=== PATIENT | female | born 1985 | race Caucasian/White ===

== ENCOUNTER 2020-05-30 13:13 | Emergency (ER) | payer OTHER, SELFPAY ==
--- NOTE | ~2020-05-30 | US_ITS ---
EXAMINATION: ULTRASOUND OB LESS THAN 14 WEEKS CLINICAL INFORMATION: Left lower quadrant abdominal pain. COMPARISON: None TECHNIQUE: Transabdominal imaging of the pelvis is performed. FINDINGS: There is a single live intrauterine fetus with a crown-rump length of 2.3 cm corresponding 9 weeks 9 days and NIKOLAI of 01/01/2021. By LMP the clinical gestational age is 01/02/2021. There is visualization of yolk sac, pole and cardiac activity. The artery does 1 69 bpm. The right ovary measures 2.4 x 1.6 x 2.1 cm. The left ovary measures 4.2 x 1.8 x 2.4 cm is anechoic corpus luteal cyst measuring 1.5 x 1.5 x 1.5 cm. There is no free fluid in cul-de-sac. US/US OB <= 14 weeks fetus IMPRESSION: Single live intrauterine fetus with ultrasound gestational age of 9 weeks 1 day and NIKOLAI of 01/01/2021. There is a small left ovarian corpus luteal cyst measuring 1.5 x 1.5 x 1.5 cm
[2020-05-30 13:22] VITALS: BP 115/82; PULSE 79; RESP 16; TEMP 36.8; O2SAT 100; BMI 18.9
--- NOTE | 2020-05-30 13:39 | ED_ITS ---
HPI - General Chief complaint: Nausea/Vomiting/Diarrhea Stated complaint: vomiting Time Seen by Provider: 05/30/20 13:26 Source: patient Mode of arrival: ambulatory Limitations: no limitations History of Present Illness HPI Narrative: 34yoF who is currently 9 week estimated by last menstr ual period who has had 8 total pregnancies inclduing this in the past, 6 living children and 1 miscarriage ([id number]) presenting who is being followed by [facility] presenting to the ED with complaints of nausea/vomiting with associated left lower quadrant abdominal pain. Reports she was seen at with a woman yesterday and given Reglan and Doxylamine although she reports these medications made her symptoms worse and cause her to be dizzy therefore she stopped taking them after 1 dose. Denies any fevers, chills, headaches, neck pain/stiffness, chest pain, shortness of breath, dyspnea on exertion, orthopnea, palpitations, vaginal discharge, vaginal bleeding, dysuria, constipation or diarrhea. Denies recent travel or sick contacts. MD Complaint: abdominal pain and other (With associated nausea/vomiting) Onset (ago): day(s) (For the past few days worse today) Pain Consistency: constant Location: abdomen (Left lower quadrant) Severity: moderate Quality: Cramping Relieving factors: none Exacerbating factors: eating Associated symptoms: nausea and vomiting Vaginal discharge: none Vaginal bleeding: none Patient : Yes Number of Weeks : 9 OB History - Current : no complications OB History - Previous Pregnancies: no complications care: followed by OB Related Data : 8 Para: 6 Total number of abortions (spontaneous and elective): 1 Previous Rx's Medication Instructions Recorded promethazine 25 mg PO Q6H PRN #14 tab 05/30/20 promethazine 25 mg UT Q6H PRN #12 ea 05/30/20 Allergies Allergy/AdvReac Type Severity Reaction Status Date / Time No Known Allergies Allergy Verified 05/30/20 13:50 [No Known Allergies*] Review of Systems Review of Systems: Constitutional : No Weight loss, No Fever, No Chills, No Night Sweats, No Fatigue, NoMalaise ENT/Mouth: No ear pain, No sore throat, No Difficulty swallowing Cardiovascular : No Chest Pain, No SOB, No Dyspnea on Exertion, No Orthopnea, NoEdema, No Palpitations Respiratory : No Cough, No Sputum, No Wheezing, No Dyspnea Gastrointestinal : + abdominal pain, + Nausea, + Vomiting, No Diarrhea, No Hematochezia, No Melena Genitourinary : No irregular bleeding, No Dysuria, No Urinary Frequency, No Hematuria,No Urinary Incontinence, No Urgency, No Flank Pain Musculoskeletal : No joint pain, No Myalgias, No Joint Swelling Skin : No Skin Lesions, No rash Neuro : No Weakness, No Numbness, No Paresthesias, No Loss of Consciousness, NoDizziness, No Headache Psych : No Social Issues, Heme/Lymph: No Bruising, No Bleeding,No Lymphadenopathy Endocrine : No Polyuria, No Polydipsia, No Temperature Intolerance Yes all other systems are reviewed and are negative [facility] Past Medical History Attestation statement: The following information was validated with the patient. Medical History Asthma Sickle cell trait : 8 Para: 6 Total number of abortions (spontaneous and elective): 1 Social History Social History Advance Directives: Yes Advance Directives Information Provided: No Advance Directives on File: No Physical Exam Vital Signs: Vital Signs: Last Vital Signs Temp 98.6 F 05/30/20 16:06 Pulse 86 05/30/20 16:06 Resp 16 05/30/20 16:06 BP 124/93 H 05/30/20 16:06 Pulse Ox 100 05/30/20 13:22 Body Mass Index 18.9 vital signs have been reviewed as normal and appeared to be correct. Blood pressure normal. Heart rate normal. Respiration rate normal. Temperature normal. Oxygen saturation normal. Appearance: Alert. Oriented X3. No acute distress. Head: Normal external exam. Normocephalic. Eyes: PERRLA. EOMI. Conjunctiva and sclera normal. Eyelids normal. ENT: Pharynx normal. Uvula midline. Moist mucous membranes. No trismus noted. No drooling noted. No muffled voice noted. Neck: Normal inspection. Neck supple. FROM. No adenopathy. No meningeal signs. CVS: Normal heart rate and rhythm. Heart sound normal. No murmurs noted. Pulses normal throughout. Respiratory: No respiratory distress. Painless inspiration. Breath sounds normal. No wheezes/rales/rhonchi noted. Chest nontender. No accessory muscle usage noted or decreased air movement noted. Abdomen: Soft and mild tenderness to palpation to left lower quadrant/suprapubic area with guarding. Nondistended. No rigidity. Bowel sounds normal in all 4 quadrants. No distention noted. No organomegaly noted. No visible injury noted. No rebound tenderness. Negative Rovsing sign. Negative obturator's sign. Negative psoas sign. Negative Zelaya sign. Back: No CVA tenderness. Full range of motion noted. Skin: Skin warm and dry. Normal skin color. Normal skin turgor. No rashes/lesions/lacerations noted. Extremities: No lower extremity edema. No calf tenderness noted. Extremities exhibit normal range of motion. Extremities nontender. Neuro: Oriented X 3. No motor deficit. No sensory deficit. Reflexes normal. Course Course Course Narrative: 4:33pm - 34yoF who is currently 9 week estimated by last menstrual period who has had 8 total pregnancies inclduing this in the past, [facility] and [facility] ([id number]) presenting who is being followed by [facility] at [facility] presenting to the ED with complaints of nausea/vomiting with associated left lower quadrant abdominal pain. - labs obtained [place] [address] otherwise all other labs are within normal limits. Serum quant appropriately elevated. UA revealed 80 ketones although patient received 2.5 L at this time of fluids. No evidence of UTI. Patient is now tolerating p.o. fluids. Is requesting to go home despite her 3rd L fluid still running. ultrasound revealed single live intrauterine fetus with ultrasound gestational age of 9 weeks 1 day and e stimated delivery date of 01/01/2021. There is a small left ovarian corpus luteal cyst otherwise no other acute processes noted. - therefore will DC home with Phenergan as patient reports that this medication actually worked better we will give her p.o. and suppository and instructed patient to not take at the same time and to return if any new or worsening symptoms. Patient understands agrees with this plan. Along with instructions to follow-up with OBGYN. Procedures Perimortem Number of Weeks : 9 MDM - OB/Uterine Contractions Medical Records Attestation: I reviewed the patient's medical records. Lab Data Attestation: I reviewed the patient's lab results. Result diagrams: 05/30/20 13:48 05/30/20 13:48 Labs: Lab Results 05/30/20 05/30/20 05/30/20 Range/Units 13:48 13:48 13:48 WBC 11.0 H (4.8-10.8) X10*3/uL RBC 4.30 (4.20-5.50) X10*6/uL Hgb 12.9 (12.0-16.0) g/dl Hct 36.4 L (37-47) % MCV 84.7 (80-98) fL MCH 30.0 (27.0-33.0) pg MCHC 35.4 H (31.0-35.0) g/dl RDW 13.4 (11.0-16.0) % Plt Count 257 (160-400) X10*3/uL MPV 9.1 L (9.4-12.3) fL Immature Gran % (Auto) 0.4 (0.0-0.4) % Neut % (Auto) 79.6 H (45-73) % Lymph % (Auto) 14.2 L (20-40) % [place] % (Auto) 5.2 (2-11) % Eos % (Auto) 0.4 (0-4) % Baso % (Auto) 0.2 (0-2) % Lymph # (Auto) 1.6 (1.2-4.9) X10*3/uL [place] # (Auto) 0.6 (0.1-1.2) X10*3/uL Eos # (Auto) 0.0 (0.0-0.4) X10*3/uL Baso # (Auto) 0.0 (0.0-0.2) X10*3/uL Abs Immat Gran (auto) 0.04 H (0.00-0.03) X10*3/uL Absolute Neuts (auto) 8.8 H (2.0-8.3) X10*3/uL Absolute Nucleated RBC 0.000 (0.0-0.012) X10*3/uL Nucleated RBC % (auto) 0.0 (0.0-0.2) /100WBC Hold Blue Top SEE NOTE Sodium 137 (135-145) mmol/L Potassium 3.4 (3.3-5.1) mmol/L Chloride 100 (96-108) mmol/L Carbon Dioxide 24 (22-29) mmol/L Anion Gap 16 (12-20) BUN 9 (9-16) mg/dL Creatinine 0.65 (0.5-1.4) mg/dL Estim Creat Clear Calc 87.6 Estimated GFR > 60 Random Glucose 84 (60-115) mg/dL Calcium 9.8 (8.4-10.2) mg/dL Magnesium 2.0 (1.6-2.6) mg/dL Total Bilirubin 0.5 (0.0-1.0) mg/dL Direct Bilirubin 0.2 (0.0-0.5) mg/dL AST 19 (5-31) U/L ALT 24 (0-31) U/L Alkaline Phosphatase 55 (39-117) U/L Total Protein 8.1 H (6.5-8.0) g/dL Albumin 4.8 (3.5-5.0) g/dL Beta HCG, Quant mIU/mL Urine Color Urine Appearance Urine pH (5.0-8.0) Ur Specific [place] (1.005-1.025) Urine Protein (NEG-TRACE) MG/DL Urine Glucose (UA) (NEG) MG/DL Urine Ketones (NEG) MG/DL Urine Blood (NEG) Urine Nitrite (NEG) Ur Leukocyte Esterase (NEG) 05/30/20 05/30/20 Range/Units 13:48 16:09 WBC (4.8-10.8) X10*3/uL RBC (4.20-5.50) X10*6/uL Hgb (12.0-16.0) g/dl Hct (37-47) % MCV (80-98) fL MCH (27.0-33.0) pg MCHC (31.0-35.0) g/dl RDW (11.0-16.0) % Plt Count (160-400) X10*3/uL MPV (9.4-12.3) fL Immature Gran % (Auto) (0.0-0.4) % Neut % (Auto) (45-73) % Lymph % (Auto) (20-40) % [place] % (Auto) (2-11) % Eos % (Auto) (0-4) % Baso % (Auto) (0-2) % Lymph # (Auto) (1.2-4.9) X10*3/uL [place] # (Auto) (0.1-1.2) X10*3/uL Eos # (Auto) (0.0-0.4) X10*3/uL Baso # (Auto) (0.0-0.2) X10*3/uL Abs Immat Gran (auto) (0.00-0.03) X10*3/uL Absolute Neuts (auto) (2.0-8.3) X10*3/uL Absolute Nucleated RBC (0.0-0.012) X10*3/uL Nucleated RBC % (auto) (0.0-0.2) /100WBC Hold Blue Top Sodium (135-145) mmol/L Potassium (3.3-5.1) mmol/L Chloride (96-108) mmol/L Carbon Dioxide (22-29) mmol/L Anion Gap (12-20) BUN (9-16) mg/dL Creatinine (0.5-1.4) mg/dL Estim Creat Clear Calc Estimated GFR Random Glucose (60-115) mg/dL Calcium (8.4-10.2) mg/dL Magnesium (1.6-2.6) mg/dL Total Bilirubin (0.0-1.0) mg/dL Direct Bilirubin (0.0-0.5) mg/dL AST (5-31) U/L ALT (0-31) U/L Alkaline Phosphatase (39-117) U/L Total Protein (6.5-8.0) g/dL Albumin (3.5-5.0) g/dL Beta HCG, Quant 914583 mIU/mL Urine Color YELLOW Urine Appearance CLEAR Urine pH 5.5 (5.0-8.0) Ur Specific [place] 1.025 (1.005-1.025) Urine Protein NEG (NEG-TRACE) MG/DL Urine Glucose (UA) NEG (NEG) MG/DL Urine Ketones >=80 (NEG) MG/DL Urine Blood 2+ H (NEG) Urine Nitrite NEG (NEG) Ur Leukocyte Esterase NEG (NEG) Imaging Data Fetus ultrasound: Attestation: I personally reviewed and interpreted this imaging study as follows: Radiologist's impression: FINDINGS: There is a single live intrauterine fetus with a crown-rump length of 2.3 cm corresponding 9 weeks 9 days and NIKOLAI of 01/01/2021. By LMP the clinical gestational age is 01/02/2021. There is visualization of yolk sac, pole and cardiac activity. The artery does 1 69 bpm. The right ovary measures 2.4 x 1.6 x 2.1 cm. The left ovary measures 4.2 x 1.8 x 2.4 cm is anechoic corpus luteal cyst measuring 1.5 x 1.5 x 1.5 cm. There is no free fluid in cul-de-sac. US/US OB <= 14 weeks fetus IMPRESSION: Single live intrauterine fetus with ultrasound gestational age of 9 weeks 1 day and NIKOLAI of 01/01/2021. There is a small left ovarian corpus luteal cyst measuring 1.5 x 1.5 x 1.5 cm Discharge Plan Discharge Clinical Impression: Hyperemesis gravidarum, mild, before 23rd week, Nausea and vomiting during , , Cyst of left ovary Patient Disposition: Home, Self-Care Instructions: Nausea and Vomiting in (ED), Ovarian Cyst (ED) Additional Instructions: I prescribed you Phenergan by mouth and a rectal suppository. Please alternate between the Phenergan prescriptions do not take them both at the same time either take the 1 by mouth or rectally. Return if any new or worsening symptoms. Follow-up with your OBGYN. Prescriptions: New promethazine 25 mg tablet 25 mg PO Q6H PRN (Reason: nausea and vomiting) Qty: 14 RF: 0 promethazine 25 mg suppository 25 mg UT Q6H PRN (Reason: nausea and vomiting) Qty: 12 RF: 0 Referrals: Physician,None [Primary Care Provider] - 2 days (Your PCP and your OBGYN) Print Language: Divehi
[2020-05-30] MEDS: 0.9 % Sodium Chloride 1,000 ML 999 ML IVCONT ×3 (13:50→17:05)
[2020-05-30 13:58] LABS: MANUAL DIFF FLAG NO
[2020-05-30 13:59] LABS: Basophils Percent Auto 0.2 % (0-2); Eosinophils Percent Auto 0.4 % (0-4); Hematocrit 36.4 % (37-47); Hemoglobin 12.9 g/dl (12.0-16.0); Imm Gran Abs Auto 0.04 X10*3/uL (0.00-0.03); Imm Gran Pct Auto 0.4 % (0.0-0.4); Lymphocytes Absolute Auto 1.6 X10*3/uL (1.2-4.9); Lymphocytes Percent Auto 14.2 % (20-40); Mean Corpuscular HGB Conc 35.4 g/dl (31.0-35.0); Mean Corpuscular Volume 84.7 fL (80-98); Mean Platelet Volume 9.1 fL (9.4-12.3); Monocytes Absolute Auto 0.6 X10*3/uL (0.1-1.2); Monocytes Percent Auto 5.2 % (2-11); Neutrophils Absolute Auto 8.8 X10*3/uL (2.0-8.3); Neutrophils Percent Auto 79.6 % (45-73); Platelet Count 257 X10*3/uL (160-400); Red Cell Distribution Width 13.4 % (11.0-16.0)
[2020-05-30 14:31] LABS: Alanine Aminotransferase 24 U/L (0-31); Albumin Level 4.8 g/dL (3.5-5.0); Alkaline Phosphatase 55 U/L (39-117); Anion Gap 16 (12-20); Aspartate Amino Transferase 19 U/L (5-31); Bilirubin Direct 0.2 mg/dL (0.0-0.5); Bilirubin Total 0.5 mg/dL (0.0-1.0); Blood Urea Nitrogen 9 mg/dL (9-16); Calcium 9.8 mg/dL (8.4-10.2); Carbon Dioxide 24 mmol/L (22-29); Chloride 100 mmol/L (96-108); Creatinine Clr Calc Pharmacy 87.6; Estimated Glomerular Filt Rate > 60; Glucose Random 84 mg/dL (60-115); Potassium 3.4 mmol/L (3.3-5.1); Sodium 137 mmol/L (135-145); Total Protein 8.1 g/dL (6.5-8.0)
[2020-05-30 16:06] VITALS: BP 124/93; PULSE 86; RESP 16; TEMP 37
[2020-05-30 16:24] LABS: Glucose Urine UA NEG (NEG); Leukocyte Esterase Urine NEG (NEG); Nitrite Urine NEG (NEG); PH 5.5 (5.0-8.0); Specific Gravity - Urine 1.025 (1.005-1.025); Urine Blood 2+ (NEG); Urine Ketones >=80 MG/DL (NEG); Urine Protein NEG (NEG-TRACE)
[2020-05-30 16:26] LABS: Appearance Urine CLEAR; Color Urine YELLOW
[2020-05-30 16:35] LABS: RBC Urine 0-2 /HPF (0); Squamous Epithelial Cell Urine TRACE /LPF; WBC Urine 0-2 /HPF (0-4)
[2020-05-30 16:36] LABS: Hyaline Casts Urine 0-2 /LPF; Mucus Urine TRACE /LPF
== END 2020-05-30 17:55 | disposition home or self-care (01) ==
PROVIDERS: Physician Assistant Medical; Emergency Provider Emergency Medicine Emergency Medical Services
DX: O21.0 Mild hyperemesis gravidarum (principal); O34.81 Maternal care for other abnormalities of pelvic organs, first trimester; N83.12 Corpus luteum cyst of left ovary; O26.891 Other specified pregnancy related conditions, first trimester; R10.32 Left lower quadrant pain; Z3A.09 9 weeks gestation of pregnancy
CPT/HCPCS: 36415; 76801; 80048; 80076; 81001; 83735; 84702; 85025; 96361; 96374; 99284

== ENCOUNTER 2023-05-22 14:10 | Emergency (ER) | payer OTHER, SELFPAY ==
[2023-05-22 14:25] VITALS: BP 112/76; PULSE 90; RESP 18; TEMP 36.5; O2SAT 95; BMI 23.1
--- NOTE | 2023-05-22 14:38 | ED_ITS ---
HPI - General Adult General Chief complaint: General Medical Stated complaint: Lesions on head & abdomen Time Seen by Provider: 05/22/23 14:33 Source: patient Mode of arrival: ambulatory Limitations: no limitations History of Present Illness HPI narrative: 37 yold female with healthy femal presents to the ED for lesiosn on abdomen and rash on right forehead. Patient states rash and lesions or chronic. Patient denies any fever or chills. patient states no trauma. Related Data Previous Rx's Medication Instructions Recorded promethazine 25 mg rectal 25 mg MD Q6H PRN nausea and 05/30/20 suppository vomiting #12 ea promethazine 25 mg tablet 25 mg PO Q6H PRN nausea and 05/30/20 vomiting #14 tabs mupirocin 2 % topical ointment 1 appl topical TID 7 days #22 grams 05/22/23 Allergies Allergy/AdvReac Type Severity Reaction Status Date / Time No Known Allergies Allergy Verified 05/30/20 13:50 [No Known Allergies*] [facility] Past Medical History Medical History Asthma Sickle cell trait Social History Social History Advance Directives: No Advance Directives Information Provided: Yes Physical Exam ED Vital Signs: Vital Signs - 24 hr 05/22/23 14:25 Temperature 97.7 F Pulse Rate 90 Respiratory Rate 18 Blood Pressure 112/76 Pulse Oximetry 95 Oxygen Delivery Method Room Air BMI result Body Mass Index 23.1 Const General: cooperative, healthy appearing, comfortable, no acute distress, well developed, alert and awake Orientation/consciousness: oriented to person, oriented to place, oriented to time and patient oriented x3 HENMT Head: Yes normal to inspection, Yes No palpable skull fracture present, Yes normocephalic and Yes atraumatic Head images: 2 1. folliculitis 2. folluctilitis Eyes General: appearance normal, both eyes and all related structures Neck Neck: Yes normal visual inspection, Yes full ROM, Yes no lymphadenopathy, Yes no meningeal signs, Yes trachea midline, Yes supple, No anterior neck swelling and No tender Chest Chest palpation & inspection: normal inspection of the chest and normal palpation of entire chest wall Resp Effort & Inspection: normal respiratory effort and able to speak in complete sentences Auscultation: clear to auscultation bilaterally Cardio Jugular venous distension: no JVD Heart sounds: S1 normal heart sound present and S2 normal heart sound present GI Inspection: Yes normal to inspection Palpation (GI): Soft to palpation, not firm, nontender, no guarding and not rigid Abdomen image: 2 1. hard scaly lesions that is non-tender. negative for pus discharge, foul odor, erythema, or tendnerss. General: Yes no CVA tenderness Back/Spine/Pelvis Back: no CVA tenderness and No back tenderness Skin Other: forehead and abdominal lesions Neuro General: oriented to person, oriented to place, oriented to time, patient oriented x3, gait normal, tone normal, moves all extremities, Normal light touch and pain sensation, no meningeal signs and no focal motor deficits Extrem General: Yes normal to inspection, Yes full ROM and Yes capillary refill normal Psych Appearance: grossly normal, well kempt and not disheveled Course Course Course Narrative: RME: 37 yold female presents to the ED for stomach skin lesion that is hard and scaly for months and right scalp lesions that are tender and itchy. Medical Decision Making Medical Decision Making MDM Narrative: 37 yold male with scaly lesions on abdomen and right right forehead. Patient denies any recent trauma. Forehead lesions indicate folliculitis. abdominal lesionon concerning any may need biopsy to rule out skin CA. patient informed to follow up with dermatlogists. not suspecting abscess, shingles, cellulitits, petechiae, bartolo- ale syndrome, or animal bite. Patient given different dermatologists to call for re-evaluation of forehead folliculitis stap or acne and abdominal SKin lesions concerning for cancer. patient stressed importance of skin biopsy. Differential Diagnosis Differential Diagnoses: The differential diagnosis associated with the presentation includes (skin CA lesions, folluclitis, acnes) Prescription Management I considered prescription management with: Antibiotic Discharge Plan Discharge Clinical Impression: Skin lesion, Folliculitis Patient Disposition: Home, Self-Care Instructions: Folliculitis (ED), Skin Biopsy (DC) Additional Instructions: Recommend calling animal caretaker tomorrow for re-evaluation for biopsy of lesion to make sure not skin cancer. Return to the ED immediately for any redness, pus discharge, foul odor, increased size of lesion, fever, chills, chest pain, or any other concerning symptoms. [facility] , [address] [place] [address] , [place] [address] . [facility], [address], [place] [address], [phone]. [facility] [phone]. [address] [place] [address]. CALL ANY OF THESE DERMATOLOGY OFFICE FOR APPOINTMENT Prescriptions: New mupirocin 2 % ointment 1 appl topical TID 7 Days Qty: 22 0RF No Action promethazine 25 mg tablet 25 mg PO Q6H PRN (Reason: nausea and vomiting) Qty: 14 0RF Rx Instructions: 3 doses during day; last dose no later than 4 hr before bedtime promethazine 25 mg suppository 25 mg MD Q6H PRN (Reason: nausea and vomiting) Qty: 12 0RF Interventions: ED Discharge Assessment Last Done: 05/22/23 14:58 Discharge Date/Time: 05/22/23 14:58 Print Language: Armenian
--- OUTSIDE RECORDS SUMMARY | 2023-05-22 14:45 | XMS_ITS | Continuity of Care Document ---
Author Name Unknown Organization [facility] Address [address] [place] [id number]- Care Team Providers Care Health Data Analyst Name Role Phone Brittani Zurita MD Primary Care Physician [phone] Encounter [facility] Date(s): 11/28/20 - 01/01/[address] [address]- Attending Physician: Not on Staff, Attending MD Allergies, Adverse Reactions, Alerts Substance Reaction Severity Status NKA Active Immunizations Given and Recorded Vaccine Date Status Refusal Reason tetanus/diphtheria/pertussis, acel(Tdap) 10/31/20 Given tetanus/diphtheria/pertussis, acel(Tdap) 09/13/11 Given Medications LSO FOR LOWER BACK PAIN LSO FOR LOWER BACK PAIN, See Instructions, # 1 each, Refills 0, Tot. Refills 0, Maintenance, PLEASESIZE PT FOR LSO FOR LOWER BACK PAIN. FAX TO [facility]. [id number], 11/14/2110:04:00 EDT, Supply Start Date: 11/14/20 Status: Ordered Misc Rx Refills 0, Maintenance, 08/07/20 14:59:00 EDT, Supply Start Date: 08/07/20 Status: Ordered Motrin Tablet 800 mg, By Mouth, 3 times a day, PRN, Refills 0, Maintenance, Pain , Mild, 12/27/20 19:54:00 EDT, Partial fill upon patient request if the prescription is for a schedule II opioid drug. Start Date: 12/27/20 Status: Ordered multivitamin, Multivitamins with Folic Acid 1 mg and Docusate oral capsule 1 capsule, By Mouth, Daily, # 30 capsule, 11 Refills, Maintenance, Capsule Start Date: 04/22/11 Status: Ordered Problem List Condition Effective Dates Status Health Status Inform ant H/O Anemia(Confirmed) Active Anemia(Confirmed) Active Asthma(Confirmed) Active H/O Depression(Confirmed) Active H/O kidney infections(Confirmed) Active H/O premature delivery(Confirmed) Active Marijuana use(Confirmed) Active Sickle cell trait(Confirmed) Active Social History Social History Type Response Smoking Status Never (less than 100 in lifetime) entered on: 05/14/20 Sex Female
--- OUTSIDE RECORDS SUMMARY | 2023-05-22 14:45 | XMS_ITS | Continuity of Care Document ---
Author Name Unknown Organization [facility] Address [address] [place] [address]- Care Team Providers Care Court Assistant Name Role Phone Brittani Zurita MD Primary Care Physician Encounter [facility] Date(s): 10/15/20 - 11/14/[facility] [address] [place] [id number] Allergies, Adverse Reactions, Alerts Substance Reaction Severity Status NKA Active Immunizations Given and Recorded Vaccine Date Status Refusal Reason tetanus/diphtheria/pertussis, acel(Tdap) 10/31/20 Given tetanus/diphtheria/pertussis, acel(Tdap) 09/13/11 Given Medications LSO FOR LOWER BACK PAIN LSO FOR LOWER BACK PAIN, See Instructions, # 1 each, Refills 0, Tot. Refills 0, Maintenance, PLEASESIZE PT FOR LSO FOR LOWER BACK PAIN. FAX TO [facility]. [id number], 11/14/2110:04:00 EDT, Supply Start Date: 11/14/20 Status: Ordered Misc Rx Refills 0, Maintenance, 08/07/20 14:59:00 EDT, Supply Start Date: 08/07/20 Status: Ordered multivitamin, Multivitamins with Folic Acid 1 mg and Docusate oral capsule 1 capsule, By Mouth, Daily, # 30 capsule, 11 Refills, Maintenance, Capsule Start Date: 04/22/11 Status: Ordered Problem List Condition Effective Dates Status Health Status Inform ant H/O Anemia(Confirmed) Active Anemia(Confirmed) Active Asthma(Confirmed) Active H/O Depression(Confirmed) Active H/O kidney infections(Confirmed) Active H/O premature delivery(Confirmed) Active Sickle cell trait(Confirmed) Active Social History Social History Type Response Smoking Status Never (less than 100 in lifetime) entered on: 05/14/20 Sex Female
--- OUTSIDE RECORDS SUMMARY | 2023-05-22 14:45 | XMS_ITS | Continuity of Care Document ---
Author Name Unknown Organization [facility] Address [address] [place] [id number]- Care Team Providers Care Weapons And Tactics Instructor Name Role Phone Brittani Zurita MD Primary Care Physician Encounter [facility] Date(s): 11/05/20 - 12/11/[address] [id number] Attending Physician: Maxine Bowser CNM Admitting Physician: Maxine Bowser CNM Referring Physician: Maxine Bowser CNM Allergies, Adverse Reactions, Alerts Substance Reaction Severity Status NKA Active Immunizations Given and Recorded Vaccine Date Status Refusal Reason tetanus/diphtheria/pertussis, acel(Tdap) 10/31/20 Given tetanus/diphtheria/pertussis, acel(Tdap) 09/13/11 Given Medications LSO FOR LOWER BACK PAIN LSO FOR LOWER BACK PAIN, See Instructions, # 1 each, Refills 0, Tot. Refills 0, Maintenance, PLEASESIZE PT FOR LSO FOR LOWER BACK PAIN. FAX TO [facility]. [id number], 11/14/2110:04:00 EDT, Supply Start Date: 11/14/20 Status: [...]
--- OUTSIDE RECORDS SUMMARY | 2023-05-22 14:45 | XMS_ITS | Continuity of Care Document ---
Author Name Unknown Organization [facility] Address [address] [place] [address]- Care Team Providers Care Gas Appliance Adjuster Name Role Phone Brittani Zurita MD Primary Care Physician [phone] [place] [facility] [id number] Date(s): 03/09/21 - 04/08/[address] [address]- Attending Physician: Yoana Roberts Admitting Physician: AdmYoana gerardo Referring Physician: AdmtrYoana Allergies, Adverse Reactions, Alerts Substance Reaction Severity Status NKA Active Immunizations Given and Recorded Vaccine Date Status Refusal Reason tetanus/diphtheria/pertussis, acel(Tdap) 10/31/20 Given tetanus/diphtheria/pertussis, acel(Tdap) 09/13/11 Given Medications LSO FOR LOWER BACK PAIN LSO FOR LOWER BACK PAIN, See Instructions, # 1 each, Refills 0, Tot. Refills 0, Maintenance, PLEASESIZE PT FOR LSO FOR LOWER BACK PAIN. FAX TO [facility]. [id number], 11/14/2110:04:00 EDT, Supply Start Date: 11/14/20 Status: [...] Marijuana use(Confirmed) Active Sickle cell trait(Confirmed) Active Vital Signs Most recent to oldest [Reference Range]: 1 Weight 44.540 kg (04/22/11 12:00 PM) Blood Pressure [90-138/55-84 mm Hg] 120/ 80mm Hg (04/22/11 12:00 PM) Weight Obtained Via Standing scale (04/22/11 12:00 PM) Social History Social History Type Response Smoking Status Never (less than 100 in lifetime) entered on: 05/14/20 Sex Female
--- OUTSIDE RECORDS SUMMARY | 2023-05-22 14:45 | XMS_ITS | Continuity of Care Document ---
Author Name Unknown Organization [facility] Address [address] [place] [address]- Care Team Providers Care Field Recorder Name Role Phone Brittani Zurita MD Primary Care Physician [phone] Encounter [facility] Date(s): 12/25/20 - 03/06/21 [facility] [address] [address]- Attending Physician: Not on Staff, Attending MD [...] PAIN. FAX TO [facility]. [id number], 11/14/2110:04:00 EDT, Supply Start Date: 11/14/20 Status: [...]
--- OUTSIDE RECORDS SUMMARY | 2023-05-22 14:45 | XMS_ITS | Continuity of Care Document ---
Author Name Unknown Organization [facility] ter Address [address] [place] [address]- Care Team Providers Care Channel Cementer Name Role Phone Brittani Zurita MD Primary Care Physician [phone] [place] [facility] [place] - 12/31/[address] [address] Attending Physician: Trini Landa CNM Admitting Physician: Trini Landa CNM Referring Physician: Trini Landa CNM Allergies, Adverse Reactions, Alerts Substance Reaction [...] PAIN. FAX TO [facility]. [id number], 11/14/2110:04:00 EDT, Supply Start Date: 11/14/20 Status: [...]
--- OUTSIDE RECORDS SUMMARY | 2023-05-22 14:46 | XMS_ITS | Continuity of Care Document ---
Author Name Unknown Organization [facility] ter Address [address] [place] [address]- Care Team Providers Care Z Os Mainframe Systems Programmer Name Role Phone Brittani Zurita MD Primary Care Physician [phone] Encounter [facility] [place] Date(s): 12/24/20 - 12/31/[address] [address]- Encounter Diagnosis Procedure and treatment not carried out due to patient leaving prior to being seen by health care provider(Final) - Discharge Disposition: A-D/C Home Attending Physician: Haydee Barton MD Admitting Physician: Haydee Barton MD Allergies, Adverse Reactions, Alerts Substance Reaction [...] PAIN. FAX TO [facility]. [id number], 11/14/2110:04:00 EDT, Supply Start Date: 11/14/20 Status: [...] recent to oldest [Reference Range]: 1 Weight 52.1 kg (12/24/20 3:14 PM) Oxygen Saturation [94-100 %] 100 % (12/24/20 3:14 PM) Pulse Rate [55-90 bpm] 81 bpm (12/24/20 3:14 PM) Blood Pressure [90-138/55-84 mm Hg] 108/ 74mm Hg (12/24/20 3:14 PM) Respiratory Rate [16-30 br/min] 20 br/mi n (12/24/20 3:14 PM) Temperature [96.8-100.4 DegF] 98.6 DegF (12/24/20 3:14 PM) Temperature Route Oral (12/24/20 3:14 PM) Dry Weight 52.1 kg (12/24/20 3:14 PM) Weight Obtained Via Standing scale (12/24/20 3:14 PM) Dry Weight Obtained Via Standing scale (12/24/20 3:14 PM) Social History Social History Type Response Smoking Status Never (less than 100 in lifetime) entered on: 05/14/20 Sex Female
--- OUTSIDE RECORDS SUMMARY | 2023-05-22 14:46 | XMS_ITS | Continuity of Care Document ---
Author Name Unknown Organization [facility] Address [address] [place] [address]- Care Team Providers Care Sales Service Route Manager Name Role Phone Brittani Zurita MD Primary Care Physician [place] [facility] [place] [id number] Date(s): 11/28/20 - 01/25/[address] [address]- Attending Physician: Trini Landa CNM Admitting Physician: Trini Landa CNM Allergies, Adverse Reactions, [...] PAIN. FAX TO [facility]. [id number], 11/14/2110:04:00 EDT, Supply Start Date: 11/14/20 Status: [...]
--- OUTSIDE RECORDS SUMMARY | 2023-05-22 14:46 | XMS_ITS | Continuity of Care Document ---
Author Name Unknown Organization [facility] ter Address [address] [place] [address]- Care Team Providers Care Electrical Logging Operator Name Role Phone Brittani Zurita MD Primary Care Physician Encounter [facility] [place] Date(s): 10/21/20 - 10/21/[address] [address]- Discharge Disposition: A-D/C Home Attending Physician: Maxine Bowser CNM Admitting Physician: Maxine Bowser CNM Referring Physician: Maxine Bowser CNM Allergies, Adverse Reactions, Alerts Substance Reaction Severity Status NKA Active Immunizations Given and Recorded Vaccine Date Status Refusal Reason tetanus/diphtheria/pertussis, acel(Tdap) 09/13/11 Given Medications Misc Rx Refills 0, Maintenance, 08/07/20 14:59:00 EDT, Supply Start Date: 08/07/20 Status: Ordered Multivitamin Daily, 0 Refills, Maintenance, 10/03/20 10:02:00 EDT, Partial fill upon patient request if the prescription is for a schedule II opioid drug. Start Date: 10/03/20 Status: Ordered multivitamin, Multivitamins with Folic Acid 1 mg and Docusate oral capsule 1 capsule, By Mouth, Daily, # 30 capsule, 11 Refills, Maintenance, Capsule Start Date: 04/22/11 Status: Ordered Multivitamins with Folic Acid 1 mg oral tablet 1 tablet, By Mouth, Daily, # 90 tablet, 3 Refills, Maintenance, 05/16/20 12:09:00 EST, Tablet, [id number], Partial fill upon patient request if the prescription is for a schedule II opioid drug., 1 tablet By Mouth Daily, 155, cm, 05/14/20 15:3... Start Date: 05/16/20 Status: Ordered Problem List Condition Effective Dates Status Health Status Inform ant H/O Anemia(Confirmed) Active Asthma(Confirmed) Active H/O Depression(Confirmed) Active H/O kidney infections(Confirmed) Active H/O premature delivery(Confirmed) Active Sickle cell trait(Confirmed) Active Social History Social History Type Response Smoking Status Never (less than 100 in lifetime) entered on: 05/14/20 Sex Female
--- OUTSIDE RECORDS SUMMARY | 2023-05-22 14:46 | XMS_ITS | Continuity of Care Document ---
Author Name Unknown Organization [facility] Address [address] [place] [address]- Care Team Providers Care Beauty Culturist Apprentice Name Role Phone Brittani Zurita MD Primary Care Physician En[facility] [place] Date(s): 02/04/21 - 03/06/[address] [address]- Attending Physician: Yoana Roberts Admitting Physician: Yoana Roberts Referring Physician: Yoana Roberts Allergies, Adverse Reactions, Alerts Substance Reaction Severity Status NKA Active Immunizations Given and Recorded Vaccine Date Status Refusal Reason tetanus/diphtheria/pertussis, acel(Tdap) 10/31/20 Given tetanus/diphtheria/pertussis, acel(Tdap) 09/13/11 Given Medications LSO FOR LOWER BACK PAIN LSO FOR LOWER BACK PAIN, See Instructions, # 1 each, Refills 0, Tot. Refills 0, Maintenance, PLEASESIZE PT FOR LSO FOR LOWER BACK PAIN. FAX TO [facility]. [id number], 11/14/2110:04:00 EDT, Supply Start Date: 11/14/20 Status: [...]
--- OUTSIDE RECORDS SUMMARY | 2023-05-22 14:46 | XMS_ITS | Continuity of Care Document ---
Author Name Unknown Organization [facility] ter Address [address] [place] [address]- Care Team Providers Care Care Professional Name Role Phone Brittani Zurita MD Primary Care Physician En[place] [facility] [place] Date(s): 12/17/20 - 12/17/[address] [address]- Discharge Disposition: A-D/C Home Attending Physician: Vish Trejo MD Admitting Physician: Vish Trejo MD Referring Physician: Vish Trejo MD Allergies, Adverse Reactions, Alerts Substance Reaction [...] PAIN. FAX TO [facility]. [id number], 11/14/2110:04:00 EDT, Supply Start Date: 11/14/20 Status: [...] recent to oldest [Reference Range]: 1 Weight 52.9 kg (12/17/20 7:00 AM) Oxygen Saturation [94-100 %] 100 % (12/17/20 7:13 AM) Blood Pressure [90-138/55-84 mm Hg] 92/5 6mm Hg (12/17/20 7:13 AM) Respiratory Rate [16-30 br/min] 18 br/mi n (12/17/20 7:13 AM) Temperature [96.8-100.4 DegF] 98.0 DegF (12/17/20 7:13 AM) Mode of Delivery (Oxygen) Room air (12/17/20 7:13 AM) Blood pressure sites Arm, right (12/17/20 7:13 AM) Temperature Route Oral (12/17/20 7:13 AM) Dry Weight 52.9 kg (12/17/20 7:00 AM) Weight Obtained Via Standing scale (12/17/20 7:00 AM) Social History Social History Type Response Smoking Status Never (less than 100 in lifetime) entered on: 05/14/20 Sex Female
--- OUTSIDE RECORDS SUMMARY | 2023-05-22 14:46 | XMS_ITS | Continuity of Care Document ---
Author Name Unknown Organization [facility] Address [address] [place] [address]- Care Team Providers Care Electronics Parts Sales Representative Name Role Phone Brittani Zurita MD Primary Care Physician En[place] [facility] [place] Date(s): 11/28/20 - 02/01/[address] [address]- Attending Physician: Not on Staff, Attending MD [...] PAIN. FAX TO [facility]. [id number], 11/14/2110:04:00 EDT, Supply Start Date: 11/14/20 Status: [...]
--- OUTSIDE RECORDS SUMMARY | 2023-05-22 14:46 | XMS_ITS | Continuity of Care Document ---
Author Name Unknown Organization [facility] Address [address] [place] [address]- Care Team Providers Care Cement Rubber Name Role Phone Brittani Zurita MD Primary Care Physician [phone] Encounter [facility] Date(s): 11/07/20 - 12/07/20 [facility] [address] [place] [address] Allergies, Adverse Reactions, Alerts Substance Reaction Severity Status NKA Active Immunizations Given and Recorded Vaccine Date Status Refusal Reason tetanus/diphtheria/pertussis, acel(Tdap) 10/31/20 Given tetanus/diphtheria/pertussis, acel(Tdap) 09/13/11 Given Medications LSO FOR LOWER BACK PAIN LSO FOR LOWER BACK PAIN, See Instructions, # 1 each, Refills 0, Tot. Refills 0, Maintenance, PLEASESIZE PT FOR LSO FOR LOWER BACK PAIN. FAX TO [facility]. [id number], 11/14/2110:04:00 EDT, Supply Start Date: 11/14/20 Status: [...]
--- OUTSIDE RECORDS SUMMARY | 2023-05-22 14:46 | XMS_ITS | Continuity of Care Document ---
Author Name Unknown Organization [facility] Address [address] [place] [address]- Care Team Providers Care Photo Lab Technician Name Role Phone Brittani Zurita MD Primary Care Physician [phone] [place] [facility] [place] - 06/28/[address] [address]- Allergies, Adverse Reactions, Alerts Substance Reaction Severity Status NKA Active Immunizations Given and Recorded Vaccine Date Status Refusal Reason tetanus/diphtheria/pertussis, acel(Tdap) 09/13/11 Given Medications ibuprofen 600 mg oral tablet 1 tablet = 600 mg, By Mouth, 4 times a day, PRN Pain , Moderate, # 120 tablet, 1 Refills, Maintenance Start Date: 07/02/10 Stop Date: 08/31/10 Status: Ordered ibuprofen 600 mg oral tablet 600 mg, 1, tablet, By Mouth, Every 8 hours, # 30 tablet, Refills 0, Tot. Refills 0, Maintenance, 05/05/16 13:17:48, Print Requisition Start Date: 05/05/16 Status: Ordered ibuprofen 600 mg oral tablet 1 tablet = 600 mg, By Mouth, 4 times a day, PRN for pain, # 40 tablet, 1 Refills, Maintenance, Tablet Start Date: 09/13/11 Status: Ordered Mirena 52 mg intrauteral device 1 each = 52 mg, Intrauterine, Once, # 1 each, 0 Refills, Maintenance Start Date: 09/12/11 Status: Ordered multivitamin, Multivitamins with Folic Acid 1 mg and Docusate oral capsule 1 capsule, By Mouth, Daily, # 30 capsule, 11 Refills, Maintenance, Capsule Start Date: 04/22/11 Status: Ordered norethindrone 5 mg oral tablet 1 tablet = 5 mg, By Mouth, Daily, # 28 tablet, 11 Refills, Maintenance Start Date: 07/02/10 Stop Date: 06/03/11 Status: Ordered Multivitamins with Folic Acid 1 mg oral tablet 1 tablet, By Mouth, Daily, # 90 tablet, 3 Refills, Maintenance, 05/16/20 12:09:00 EST, Tablet, [id number], Partial fill upon patient request if the prescription is for a schedule II opioid drug., 1 tablet By Mouth Daily, 155, cm, 05/14/20 15:3... Start Date: 05/16/20 Status: Ordered Reglan 5 mg oral tablet 1 tablet = 5 mg, By Mouth, 3 times a day before meals and bedtime, for 30 days, 30 minutes before meals and at bedtime, # 120 tablet, 1 Refills, Acute 07/28/20 16:01:00 EDT, 05/29/20 16:01:00 EST, [id number], Partial fill upon patient request... Start Date: 05/29/20 Stop Date: 07/28/20 Status: Ordered Problem List Condition Effective Dates Status Health Status Inform ant H/O Anemia(Confirmed) Active Asthma(Confirmed) Active H/O +GBS test (urine and vag/rectal)(Confirmed) 2010 Active H/O Depression(Confirmed) Active H/O kidney infections(Confirmed) Active H/O premature delivery(Confirmed) Active H/O placenta previa(Confirmed) Active Sickle cell trait(Confirmed) Active 1urine (2004)/vag rectal - 2010 Social History Social History Type Response Smoking Status Never (less than 100 in lifetime) entered on: 05/14/20 Sex Female
--- OUTSIDE RECORDS SUMMARY | 2023-05-22 14:46 | XMS_ITS | Continuity of Care Document ---
Author Name Unknown Organization [facility] Address [address] [place] [address]- Care Team Providers Care Color Artist Name Role Phone Brittani Zurita MD Primary Care Physician [phone] [place] [facility] [place] - 04/23/[address] [address] Attending Physician: Not on Staff, Attending MD [...] Date: 07/02/10 Stop Date: 06/03/11 Status: Ordered Problem List Condition Effective Dates Status Health Status Inform ant Contraception(Confirmed) Active History of substance abuse(C onfirmed) 1 Active 1marijuana
--- OUTSIDE RECORDS SUMMARY | 2023-05-22 14:46 | XMS_ITS | Continuity of Care Document ---
Author Name Unknown Organization [facility] Address [address] [place] [address]- Care Team Providers Care Cooperative Extension Agent Name Role Phone Brittani Zurita MD Primary Care Physician [phone] [facility] [place] Date(s): 06/20/20 - 07/20/20 [facility] [address] [place] [address] Attending Physician: Yoana Roberts Admitting Physician: Yoana Roberts Referring Physician: AdmtrYoana Allergies, Adverse Reactions, Alerts [...]
--- OUTSIDE RECORDS SUMMARY | 2023-05-22 14:46 | XMS_ITS | Continuity of Care Document ---
Author Name Unknown Organization [facility] Address [address] [place] [address]- Care Team Providers Care Volunteer Firefighter Name Role Phone Brittani Zurita MD Primary Care Physician [place] [facility] [place] 10/15/20 - 11/14/20 [facility] [address] [place] [address] Attending Physician: Yoana Roberts Admitting Physician: AdmYoana [...] PAIN. FAX TO [facility]. [id number], 11/14/2110:04:00 EDT, Supply Start Date: 11/14/20 Status: [...]
--- OUTSIDE RECORDS SUMMARY | 2023-05-22 14:46 | XMS_ITS | Continuity of Care Document ---
Author Name Unknown Organization [facility] Address [address] [place] [address]- Care Team Providers Care Fruit Checker Name Role Phone Brittani Zurita MD Primary Care Physician [phone] [place] [facility] [place] - 04/23/[address] [address] Attending Physician: Yoana Roberts Admitting Physician: Yoana Roberts Referring Physician: AdmYoana gerardo Allergies, Adverse Reactions, Alerts Substance Reaction Severity [...] of substance abuse(C onfirmed) 1 Active 1marijuana Vital Signs Most recent to oldest [Reference Range]: 1 Weight 44.540 kg (04/22/11 12:00 PM) Blood Pressure [90-138/55-84 mm Hg] 120/ 80mm Hg (04/22/11 12:00 PM) Weight Obtained Via Standing scale (04/22/11 12:00 PM)
--- OUTSIDE RECORDS SUMMARY | 2023-05-22 14:46 | XMS_ITS | Continuity of Care Document ---
Author Name Unknown Organization [facility] Address [address] [place] [address]- Care Team Providers Care Carriage Setter Name Role Phone Brittani Zurita MD Primary Care Physician [phone] [place] [facility] [place](s): 06/25/20 - 09/10/20 [facility] [address] [address]- Attending Physician: Not on Staff, Attending MD [...] Refills, Maintenance, 05/16/20 12:09:00 EST, Tablet, [id number], Partial fill upon patient request if the [...]
--- OUTSIDE RECORDS SUMMARY | 2023-05-22 14:46 | XMS_ITS | Continuity of Care Document ---
Author Name Unknown Organization [facility] ter Address [address] [place] [address]- Care Team Providers Care Blocker Automatic Name Role Phone Brittani Zurita MD Primary Care Physician [phone] En[place] [facility] [place] Date(s): 11/14/20 - 12/20/[address] [address]- Attending Physician: Lexus Vargas MD Admitting Physician: Lexus Vargas MD Referring Physician: Lexus Vargas MD Allergies, Adverse Reactions, Alerts Substance Reaction [...] PAIN. FAX TO [facility]. [id number], 11/14/2110:04:00 EDT, Supply Start Date: 11/14/20 Status: [...]
--- OUTSIDE RECORDS SUMMARY | 2023-05-22 14:46 | XMS_ITS | Continuity of Care Document ---
Author Name Unknown Organization [facility] Address [address] [place] [address]- Care Team Providers Care Revenue Cycle Administrator Name Role Phone Brittani Zurita MD Primary Care Physician [place] [facility] [place](s[place] 08/24/21 - 11/26/[address] [address]- Attending Physician: Not on Staff, Attending MD Allergies, Adverse Reactions, Alerts No Known Allergies Immunizations Given and Recorded Vaccine Date Status Refusal Reason Human Papillomavirus Vaccine 08/24/21 Given tetanus/diphtheria/pertussis, acel(Tdap) 10/31/20 Given tetanus/diphtheria/pertussis, acel(Tdap) 09/13/11 Given Medications LSO FOR LOWER BACK PAIN LSO FOR LOWER BACK PAIN, See Instructions, # 1 each, Refills 0, Tot. Refills 0, Maintenance, PLEASESIZE PT FOR LSO FOR LOWER BACK PAIN. FAX TO [facility]. [id number], 11/14/2110:04:00 EDT, Supply Start Date: 11/14/20 Status: [...]
--- OUTSIDE RECORDS SUMMARY | 2023-05-22 14:46 | XMS_ITS | Continuity of Care Document ---
Author Name Unknown Organization [facility] Address [address] [place] [address]- Care Team Providers Care Top Case Assembler Name Role Phone Brittani Zurita MD Primary Care Physician [place] [facility] [place] [id number] Date(s): 11/28/20 - 01/18/[address] [address]- Attending Physician: Not on Staff, Attending MD Referring Physician: Brittani Zurita MD Allergies, Adverse Reactions, Alerts Substance Reaction [...] PAIN. FAX TO [facility]. [id number], 11/14/2110:04:00 EDT, Supply Start Date: 11/14/20 Status: [...]
--- OUTSIDE RECORDS SUMMARY | 2023-05-22 14:46 | XMS_ITS | Continuity of Care Document ---
Author Name Unknown Organization [facility] ter Address [address] [place] [address]- Care Team Providers Care Office Clin Asst Name Role Phone Brittani Zurita MD Primary Care Physician [phone] [place] [facility] [place] - 01/07/[address] [address] Attending Physician: Trini Landa CNM Admitting Physician: [...] PAIN. FAX TO [facility]. [id number], 11/14/2110:04:00 EDT, Supply Start Date: 11/14/20 Status: [...]
--- OUTSIDE RECORDS SUMMARY | 2023-05-22 14:46 | XMS_ITS | Continuity of Care Document ---
Author Name Unknown Organization [facility] Address [address] [place] [address]- Care Team Providers Care Baseball Coach Name Role Phone Brittani Zurita MD Primary Care Physician [place] [facility] [place] 06/22/20 - 07/22/[address] [address]- Allergies, Adverse Reactions, Alerts Substance Reaction Severity [...]
--- OUTSIDE RECORDS SUMMARY | 2023-05-22 14:46 | XMS_ITS | Continuity of Care Document ---
Author Name Unknown Organization [facility] Address [address] [place] [address]- Care Team Providers Care Outdoor Fitness Trainer Name Role Phone Brittani Zurita MD Primary Care Physician [phone] Encounter [facility] [place] Date(s): 09/08/20 - 12/24/[address] [address]- Attending Physician: Not on Staff, Attending MD [...] PAIN. FAX TO [facility]. [id number], 11/14/2110:04:00 EDT, Supply Start Date: 11/14/20 Status: [...]
--- OUTSIDE RECORDS SUMMARY | 2023-05-22 14:46 | XMS_ITS | Continuity of Care Document ---
Author Name Unknown Organization [facility] ter Address [address] [place] [address]- Care Team Providers Care Paper Winder Name Role Phone Brittani Zurita MD Primary Care Physician Encounter [facility] [place] Date(s): 10/28/20 - 10/28/[address] [address] Discharge Disposition: A-D/C Home Attending Physician: Maxine Bowser CNM Admitting Physician: Mxaine Bowser CNM Referring Physician: Maxine Bowser CNM [...] Refills, Maintenance, 05/16/20 12:09:00 EST, Tablet, [id number], Partial fill upon patient request if the [...]
--- OUTSIDE RECORDS SUMMARY | 2023-05-22 14:46 | XMS_ITS | Continuity of Care Document ---
Author Name Unknown Organization [facility] Address [address] [place] [address]- Care Team Providers Care Assembler Deck [employer] Hull Name Role Phone Brittani Zurita MD Primary Care Physician [place] [facility] [place] - 06/14/[address] [address]- Allergies, Adverse Reactions, Alerts Substance Reaction Severity [...] Date: 05/29/20 Stop Date: 07/28/20 Status: Ordered Unisom 25 mg oral tablet 1 tablet = 25 mg, By Mouth, Daily at bedtime, PRN Nausea & Vomiting, # 30 tablet, 0 Refills, Acute 06/15/20 12:07:00 EST, 05/16/20 12:07:00 EST, Tablet, [id number], Partial fill upon patient request if the prescription is for a schedule II opi... Start Date: 05/16/20 Stop Date: 06/15/20 Status: Ordered Problem List Condition Effective Dates Status Health Status Inform ant H/O Anemia(Confirmed) Active Asthma(Confirmed) Active H/O +GBS test (urine and vag/rectal)(Confirmed) 2010 Active H/O Depression(Confirmed) Active H/O kidney infections(Confirmed) Active H/O premature delivery(Confirmed) Active H/O placenta previa(Confirmed) Active 1urine (2004)/vag rectal - 2010 Social History Social History Type Response Smoking Status Never (less than 100 in lifetime) entered on: 05/14/20 Sex Female
--- OUTSIDE RECORDS SUMMARY | 2023-05-22 14:46 | XMS_ITS | Continuity of Care Document ---
Author Name Unknown Organization [facility] Address [address] [place] [id number]- Care Team Providers Care Web Portal Developer Name Role Phone Brittani Zurita MD Primary Care Physician [place] [facility] [place] - 01/23/[address] [address]- Attending Physician: Not on Staff, Attending MD [...] PAIN. FAX TO [employer] [facility] [employer]. [id number], 11/14/2110:04:00 EDT, Supply Start Date: 11/14/20 Status: [...]
--- OUTSIDE RECORDS SUMMARY | 2023-05-22 14:46 | XMS_ITS | Continuity of Care Document ---
Author Name Unknown Organization [facility] Address [address] [place] [address]- Care Team Providers Care Quality Compliance Consultant Name Role Phone Brittani Zurita MD Primary Care Physician [phone] Encounter [facility] [place] Date(s): 12/30/20 - 04/08/[address] [address]- Attending Physician: Not on Staff, Attending MD [...] PAIN. FAX TO [employer]. [id number], 11/14/2110:04:00 EDT, Supply Start Date: 11/14/20 Status: [...]
--- OUTSIDE RECORDS SUMMARY | 2023-05-22 14:46 | XMS_ITS | Continuity of Care Document ---
Author Name Unknown Organization [facility] Address [address] [place] [address]- Care Team Providers Care Counting Machine Operator Name Role Phone Brittani Zurita MD Primary Care Physician [phone] [place] [facility] [place] - 11/26/[address] [address]- Attending Physician: Yoana Roberts Admitting Physician: Yoana Roberts Referring Physician: AdmtrYoana Allergies, Adverse Reactions, Alerts No Known Allergies [...] PAIN. FAX TO [employer]. [id number], 11/14/2110:04:00 EDT, Supply Start Date: 11/14/20 Status: [...]
--- OUTSIDE RECORDS SUMMARY | 2023-05-22 14:46 | XMS_ITS | Continuity of Care Document ---
Author Name Unknown Organization [facility] Address [address] [place] [address]- Care Team Providers Care Toy Stuffer Name Role Phone Brittani Zurita MD Primary Care Physician Encounter [facility] [place] Date(s): 11/14/20 - 12/20/[address] [address]- Attending Physician: Not on Staff, Attending MD [...] PAIN. FAX TO [employer]. [id number], 11/14/2110:04:00 EDT, Supply Start Date: 11/14/20 Status: [...]
--- OUTSIDE RECORDS SUMMARY | 2023-05-22 14:46 | XMS_ITS | Continuity of Care Document ---
Author Name Unknown Organization [facility] Address [address] [place] [address]- Care Team Providers Care Chief Operator Name Role Phone Brittani Zurita MD Primary Care Physician Encounter [facility] [place] Date(s): 10/29/20 - 12/04/[address] [address] Attending Physician: Maxine Bowser CNM Admitting [...] PAIN. FAX TO [employer]. [id number], 11/14/2110:04:00 EDT, Supply Start Date: 11/14/20 Status: [...]
== END 2023-05-22 14:58 | disposition home or self-care (01) ==
PROVIDERS: Emergency Provider Student in an Organized Health Care Education/Training Program
DX: L98.9 Disorder of the skin and subcutaneous tissue, unspecified (principal); L73.9 Follicular disorder, unspecified; R21 Rash and other nonspecific skin eruption
CPT/HCPCS: 99282; 99283